=== PATIENT | male | born 1935 | race Caucasian/White ===

== ENCOUNTER → 2017-04-26 | Outpatient (CLI) | payer MEDICARE, BC ==
[~2017-04-26] MED LIST: B12 INJ.,1000 MCG/M IM; CELLCEPT500 MG PO; FINASTERIDE5 M1 PO; FOLIC ACID 1MG T1 MG PO; GABAPENTIN100 MG PO; MULTIVITAMIN1 TAB PO; NASCOBAL500 MCG/01 NS; NEUTRA PHOS K PO; NORCO 325 MG-51 TAB PO; PREDNISONE 20MG20 MG PO; PROGRAF1 MG PO; PROLENSA3 ML OP; TYLENOL 325MG325 MG PO; VICODIN 5/500 T1 TAB PO; VITAMIN D31000 IU PO; ZOFRAN4 MG PO
== END ==
LOC: LAB 10:52
DX: N18.3 Chronic kidney disease, stage 3 (moderate) (principal)

== ENCOUNTER → 2017-05-10 | Outpatient (CLI) | payer MEDICARE, BC | LOC: LAB 07:13 | DX: Z94.0 Kidney transplant status (principal) ==